=== PATIENT | female | born 1970 | race Caucasian/White ===

== ENCOUNTER → 2016-05-19 | Outpatient (CLI) | payer BC, OTHER ==
--- NOTE | 2016-05-20 13:50 | MM ---
Reason for exam: screening (asymptomatic). Last mammogram was performed 1 year and 3 months ago. History: Family history of breast cancer in paternal aunt at age 60. Took hormonal contraceptives for 7 years beginning at age 17. Took estrogen for 6 months beginning at age 39. Physical Findings: A clinical breast exam by your physician is recommended on an annual basis and results should be correlated with mammographic findings. MG Screening Mammo w CAD Bilateral CC and MLO view(s) were taken. Prior study comparison: February 12, 2015, bilateral MG screening mammo w CAD. December 12, 2013, bilateral MG diagnostic mammo w CAD LONI. The breast tissue is heterogeneously dense. This may lower the sensitivity of mammography. No significant changes when compared with prior studies. ASSESSMENT: Benign, BI-RAD 2 RECOMMENDATION: Routine screening mammogram of both breasts in 1 year.
== END | disposition home or self-care (01) ==
LOC: RADMAMWWP 07:30
PROVIDERS: ATTEND Obstetrics & Gynecology
DX: Z12.31 Encounter for screening mammogram for malignant neoplasm of breast (principal)

== ENCOUNTER 2016-05-28 22:03 | Emergency (ER) | payer BC, OTHER ==
[2016-05-28 22:08] VITALS: RESP 18
--- NOTE | 2016-05-28 22:26 | ED ---
General Adult HPI - General Chief complaint: Arrhythmia/Palpitations Stated complaint: chest pain/left arm tingling Time Seen by Provider: 05/28/16 22:24 Source: patient, RN notes reviewed, old records reviewed Mode of arrival: wheelchair Limitations: no limitations - History of Present Illness Initial comments: This is a 46-year-old female the ER for evaluation. This patient presents for evaluation palpitations patient feels palpitations left-sided of her chest, patient recently having workup for thyroid disease. As well as cause of palpitations. Patient denies any chest pain. No shortness of breath. Patient' s symptoms are going on for about a month no known cause. No change in medication diet, patient has lost weight over the last year on purpose with diet weight loss and exercise. Patient denies any fevers no cough congestion or nausea vomiting or diarrhea. No new medications, denies drugs or alcohol. - Related Data Home Medications Medication Instructions Recorded Confirmed LORazepam [Ativan] 0.5 mg PO BID 05/28/16 05/28/16 SUMAtriptan SUCCINATE [Imitrex] 100 mg PO DAILY PRN 05/28/16 05/28/16 Zolpidem [Ambien] 5 mg PO HS PRN 05/28/16 05/28/16 Allergies Allergy/AdvReac Type Severity Reaction Status Date / Time tetracycline [Tetracycline] Allergy Rash/Hives Verified 05/28/16 22:37 Review of Systems ROS Statement: Those systems with pertinent positive or pertinent negative responses have been documented in the HPI. ROS Other: All systems not noted in ROS Statement are negative. Past Medical History Past Medical History: Asthma Additional Past Medical History / Comment(s): migraines History of Any Multi-Drug Resistant Organisms: None Reported Past Surgical History: Orthopedic Surgery, Uterine Ablation Past Psychological History: Anxiety Smoking Status: Current some day smoker Past Alcohol Use History: Rare Past Drug Use History: None Reported General Exam Limitations: no limitations General appearance: alert, in no apparent distress, anxious Head exam: Present: atraumatic, normocephalic, normal inspection Eye exam: Present: normal appearance, PERRL, EOMI. Absent: scleral icterus, conjunctival injection, periorbital swelling ENT exam: Present: normal exam, mucous membranes moist Neck exam: Present: normal inspection. Absent: tenderness, meningismus, lymphadenopathy Respiratory exam: Present: normal lung sounds bilaterally. Absent: respiratory distress, wheezes, rales, rhonchi, stridor Cardiovascular Exam: Present: regular rate, normal rhythm, normal heart sounds. Absent: systolic murmur, diastolic murmur, rubs, gallop, clicks GI/Abdominal exam: Present: soft, normal bowel sounds. Absent: distended, tenderness, guarding, rebound, rigid Extremities exam: Present: normal inspection, full ROM, normal capillary refill. Absent: tenderness, pedal edema, joint swelling, calf tenderness Back exam: Present: normal inspection Neurological exam: Present: alert, oriented X3, CN II-XII intact Psychiatric exam: Present: normal affect, normal mood Skin exam: Present: warm, dry, intact, normal color. Absent: rash Course Vital Signs 05/28/16 05/28/16 22:05 22:26 Temperature 97.7 F Pulse Rate 82 Pulse Rate [ 78 [employer] ] Respiratory 18 Rate Blood Pressure 106/72 O2 Sat by Pulse 100 Oximetry - Reevaluation(s) Reevaluation #1: 05/28/16 23:21 Patient does appear to have PVCs on EKG as well as rhythm strip Reevaluation #2: 05/28/16 23:21 Patient does admit to having history of anxiety EKG Findings - EKG Comments: EKG Findings:: EKG shows sinus rhythm rate of 84, IN 138, QRS 74, QTC 472 Medical Decision Making - Medical Decision Making 46 female ER for evaluation regarding palpitations, Lasegue's are normal, thyroid studies are normal. Patient does suffer from anxiety, will continue outpatient testing with echo and Holter monitor in the future - Lab Data Result diagrams: 05/28/16 22:20 Lab Results 05/28/16 05/28/16 Range/Units 22:20 22:20 WBC 10.8 H (3.8-10.6) k/uL RBC 4.44 (3.80-5.40) m/uL Hgb 13.9 (11.4-16.0) gm/dL Hct 41.5 (34.0-46.0) % MCV 93.6 (80.0-100.0) fL MCH 31.4 (25.0-35.0) pg MCHC 33.5 (31.0-37.0) g/dL RDW 12.8 (11.5-15.5) % Plt Count 316 (150-450) k/uL Neutrophils % 60 % Lymphocytes % 25 % Monocytes % 7 % Eosinophils % 5 % Basophils % 1 % Neutrophils # 6.5 (1.3-7.7) k/uL Lymphocytes # 2.7 (1.0-4.8) k/uL Monocytes # 0.7 (0-1.0) k/uL Eosinophils # 0.6 (0-0.7) k/uL Basophils # 0.1 (0-0.2) k/uL PT 10.1 (9.0-12.0) sec INR 1.0 (<1.1) APTT 23.7 (22.0-30.0) sec Disposition Clinical Impression: Palpitations, Premature ventricular contraction Disposition: HOME SELF-CARE Condition: Good Instructions: Palpitations (ED), Premature Ventricular Contractions (ED) Referrals: Vero Moran MD [Primary Care Provider] - 1-2 days
[2016-05-28] MEDS ORDERED: SODIUM CHLORIDE 0.9% 1,000 ML IV STA (22:52)
[2016-05-28] MEDS ORDERED: LORazepam 2 MG/ML SYRINGE IV STA (22:53)
[2016-05-28 23:09] LABS: Basophils # (A) 0.1 k/uL (0-0.2); Basophils % (A) 1 %; CH 31.3; CHCM 33.6; Eosinophils # (A) 0.6 k/uL (0-0.7); Eosinophils % (A) 5 %; HCT 41.5 % (34.0-46.0); HDW 2.29; HGB 13.9 gm/dL (11.4-16.0); Luc # (Auto) 0.33; Luc % (Auto) 3; Lymphocytes # (A) 2.7 k/uL (1.0-4.8); Lymphocytes % (A) 25 %; MCH 31.4 pg (25.0-35.0); MCHC 33.5 g/dL (31.0-37.0); MCV 93.6 fL (80.0-100.0); Mean Platelet Volume 7.8; Monocytes # (A) 0.7 k/uL (0-1.0); Monocytes % (A) 7 %; Neutrophils # (A) 6.5 k/uL (1.3-7.7); Neutrophils % (A) 60 %; RBC 4.44 m/uL (3.80-5.40); RDW 12.8 % (11.5-15.5); WBC 10.8 k/uL (3.8-10.6); WBC (Perox) 11.04
[2016-05-28 23:16] LABS: Partial Thromboplastin Time 23.7 sec (22.0-30.0)
[2016-05-28 23:18] LABS: Prothrombin Time 10.1 sec (9.0-12.0)
[2016-05-28 23:20] LABS: ALT 32 U/L (9-52); AST 21 U/L (14-36); Alkaline Phosphatase 58 U/L (38-126); Anion Gap 9 mmol/L; Blood Urea Nitrogen 12 mg/dL (7-17); Carbon Dioxide 29 mmol/L (22-30); Chloride 105 mmol/L (98-107); Glucose 74 mg/dL (74-99); Magnesium 2.1 mg/dL (1.6-2.3); Non-African American GFR(MDRD) >60 (>60 ml/min/1.73 sqM); Phosphorous 4.5 mg/dL (2.5-4.5); Potassium 4.3 mmol/L (3.5-5.1); Sodium 143 mmol/L (137-145); Total Bilirubin 0.2 mg/dL (0.2-1.3); Total Protein 6.7 g/dL (6.3-8.2)
[2016-05-28 23:29] LABS: Creatine Kinase 35 U/L (30-135)
[2016-05-28 23:42] LABS: Creatine Kinase MB 0.4 ng/mL (0.0-2.4); Troponin I <0.012 ng/mL (0.000-0.034)
[2016-05-29 00:09] VITALS: BP 126/68; PULSE 85; TEMP 98
== END 2016-05-29 00:09 | disposition home or self-care (01) ==
LOC: EC 22:03
DX: I49.3 Ventricular premature depolarization (principal); F41.9 Anxiety disorder, unspecified; F17.200 Nicotine dependence, unspecified, uncomplicated; Z79.899 Other long term (current) drug therapy; Z88.1 Allergy status to other antibiotic agents; Z86.69 Personal history of other diseases of the nervous system and sense organs
CPT/HCPCS: 36415; 93005; 80053; 84443; 82550; 82553; 83735; 84100; 84484; 85025; 85610; 85730; 99285; 96374; 96361; J2060

== ENCOUNTER → 2016-06-05 | Outpatient (CLI) | payer BC, OTHER ==
--- NOTE | 2016-06-05 09:03 | US ---
EXAMINATION TYPE: US thyroid st tissue head/neck DATE OF EXAM: 06/05/2016 8:46 AM COMPARISON: NONE CLINICAL HISTORY: R22.0 Swelling/Mass/Lump. Swelling right thyroid GLAND SIZE: Right Lobe: 6.2 x 2.1 x 2.5 cm Overall Parenchyma: heterogenous Left Lobe: 6.0 x 1.9 x 1.9 cm Overall Parenchyma: heterogeneous Isthmus Thickness: 0.2 cm NODULES RIGHT: # of nodules measured on right: 2 1. 0.9 X 0.5 x 0.9 cm solid nodule at the upper pole with well-defined margins; . This nodule is w ider than tall and shows intranodular vascularity. Prior size: no prior 2. 0.7 X 0.7 x 0.7 cm solid nodule at the lower pole with irregular margins; . This nodule is talle r than wide and shows intranodular vascularity. Prior size: no prior LEFT: # of nodules measured on left: 3 1. 1.4 X 1.0 x 1.1 cm mixed nodule at the upper pole with well-defined margins; . This nodule is w ider than tall and shows intranodular vascularity. Prior size: no prior 2. 0.8 X 0.5 x 0.6 cm mixed nodule at the lower pole with well-defined margins; . This nodule is wi taz than tall and shows intranodular vascularity. Prior size: no prior 3. 0.8 X 0.5 x 0.7 cm mixed nodule at the mid pole with well-defined margins; . This nodule is wide r than tall and shows intranodular vascularity. Prior size: no prior ISTHMUS: # of nodules measured in the isthmus: 0 Bilateral neck scanned, no evidence of lymphadenopathy. Enlarged thyroid gland. Multiple nodules note d bilaterally, largest 2 measured on the right and largest 3 measured on the left. IMPRESSION: 1. Thyromegaly. 2. Multinodular goiter. Consideration might BE given to biopsying the lesions greater than 1 cm.
== END | disposition home or self-care (01) ==
LOC: RADUSWWP 08:28
PROVIDERS: ATTEND Internal Medicine
DX: E04.2 Nontoxic multinodular goiter (principal)
CPT/HCPCS: 76536

== ENCOUNTER → 2016-06-09 | Outpatient (CLI) | payer BC, OTHER | END | disposition home or self-care (01) | LOC: RADECHMAIN 12:17 | PROVIDERS: ATTEND Internal Medicine | DX: Z53.9 Procedure and treatment not carried out, unspecified reason (principal) ==

== ENCOUNTER → 2016-06-23 | Outpatient (CLI) | payer BC, OTHER ==
--- NOTE | 2016-06-24 15:07 | NM ---
EXAMINATION TYPE: NM thyroid image w uptake DATE OF EXAM: 06/24/2016 11:22 AM COMPARISON: NONE HISTORY: Nontoxic multinodular goiter TECHNIQUE: After the intravenous administration of 11 mCi Tc 99m Sodium Pertechnetate, thyroid imagin g is performed 5 minutes post injection. Thyroid iodine uptake is calculated after the oral administr ation of 20 uCi I-131 capsule. FINDINGS: There is normal distribution of activity throughout the gland. The 4 hour iodine uptake is calculated at 8.5% (normal range 8-14%). The 24-hour iodine uptake is calculated at 20.6% (normal ra nge 15-35%). No suspicious photopenic defects are focal hot nodules are evident. IMPRESSION: 1. Normal thyroid scan and uptake.
== END | disposition home or self-care (01) ==
LOC: RADNMMAIN 10:14
PROVIDERS: ATTEND Internal Medicine Endocrinology, Diabetes & Metabolism
DX: E04.2 Nontoxic multinodular goiter (principal); E05.90 Thyrotoxicosis, unspecified without thyrotoxic crisis or storm
CPT/HCPCS: 84439; 84445; 82533; 84443; 84480; 78014; A9528; A9512

== ENCOUNTER → 2016-06-23 | Outpatient (CLI) | payer BC, OTHER | END | disposition home or self-care (01) | LOC: RADECHMAIN 10:30 | PROVIDERS: ATTEND Internal Medicine | DX: I49.3 Ventricular premature depolarization (principal) | CPT/HCPCS: 93225; 93226 ==

== ENCOUNTER → 2016-10-28 | Outpatient (CLI) | payer BC, OTHER | END | disposition home or self-care (01) | LOC: LABWHC1 14:11 | PROVIDERS: ATTEND Internal Medicine Endocrinology, Diabetes & Metabolism | DX: E04.2 Nontoxic multinodular goiter (principal) | CPT/HCPCS: 36415; 84439; 84443 ==

== ENCOUNTER → 2016-11-12 | Outpatient (CLI) | payer BC, OTHER ==
[2016-11-12 18:51] LABS: Basophils # (A) 0.1 k/uL (0-0.2); Basophils % (A) 1 %; CH 31.8; Eosinophils # (A) 1.2 k/uL (0-0.7); Eosinophils % (A) 11 %; HDW 2.32; HGB 13.7 gm/dL (11.4-16.0); Luc # (Auto) 0.19; Luc % (Auto) 2; Lymphocytes # (A) 2.2 k/uL (1.0-4.8); Lymphocytes % (A) 21 %; MCH 30.6 pg (25.0-35.0); MCHC 32.6 g/dL (31.0-37.0); MCV 93.8 fL (80.0-100.0); Mean Platelet Volume 7.6; Monocytes # (A) 0.5 k/uL (0-1.0); Monocytes % (A) 4 %; Neutrophils # (A) 6.3 k/uL (1.3-7.7); Neutrophils % (A) 61 %; RBC 4.48 m/uL (3.80-5.40); RDW 13.3 % (11.5-15.5); WBC 10.4 k/uL (3.8-10.6); WBC (Perox) 10.32
[2016-11-12 19:17] LABS: Anion Gap 10 mmol/L; Blood Urea Nitrogen 10 mg/dL (7-17); Carbon Dioxide 25 mmol/L (22-30); Chloride 104 mmol/L (98-107); Glucose 71 mg/dL (74-99); Non-African American GFR(MDRD) >60 (>60 ml/min/1.73 sqM); Potassium 4.4 mmol/L (3.5-5.1); Sodium 139 mmol/L (137-145)
== END | disposition home or self-care (01) ==
LOC: LABPAT 17:33
PROVIDERS: ATTEND Obstetrics & Gynecology
DX: Z01.812 Encounter for preprocedural laboratory examination (principal); N83.292 Other ovarian cyst, left side; N83.291 Other ovarian cyst, right side
CPT/HCPCS: 80051; 82565; 82947; 84520; 85025; 87086

== ENCOUNTER 2016-11-18 06:00 | Inpatient (IN) | payer BC, OTHER ==
[2016-11-12 08:27] VITALS: BMI 26.6
--- NOTE | 2016-11-17 10:56 | HP ---
HISTORY AND PHYSICAL This is a 46-year-old, white female, 3, para 2-0-1-2 who presents with a history of right lower quadrant pain. This has been increasing in intensity and decreasing in interval. She has been using nonsteroidal medications over the counter as needed for pain. The patient had an ultrasound which reveals a complex left ovarian cyst, 4.7 x 2.8 x 5.1 cm, as well as a complex right ovarian cyst measuring up to 6.8 cm with septation and solid components. Uterine dimensions are the upper limits of normal without evidence of fibroids. The GURWINDER testing has been done, and this is returning as a low likelihood for malignancy. We will therefore at this time proceed with exploratory laparotomy, pelvic washings, right salpingo-oophorectomy, possible ALETA BSO pending our findings. Our plan would be to remove the cyst of the left ovary with ovarian reconstruction. The procedure has been discussed with the patient and her extensively and they understand and agree with our plan. REVIEW OF SYSTEMS: Review of systems is otherwise negative. PAST MEDICAL HISTORY: Significant for asthma as well as urinary incontinence. PAST SURGICAL HISTORY: Endometrial biopsy with no significant diagnostic alterations, hysteroscopy and NovaSure endometrial ablation in the past, voluntary termination of in 1991, arthroscopic surgery of the left knee in 2013. CURRENT MEDICATIONS: 1. Ambien q.h.s. p.r.n. insomnia. 2. Imitrex p.r.n. 3. Lexapro 10 mg daily. 4. Methimazole 5 mg tablets 1/2 tab by oral route once daily. 5. Metoprolol 25 mg, 1/2 tablet once daily. ALLERGIES: Allergies include TETRACYCLINE to which reports some sensitivity and SEASONAL ALLERGIES as well. FAMILY HISTORY: Significant for hypertension, testicular cancer, colon cancer, bronchial asthma, breast cancer, and multiple allergies. Reproductive history is significant for 2 spontaneous vaginal deliveries, both healthy female infants, as well as a voluntary termination of in 1991. SOCIAL HISTORY: Patient consumes social alcohol. She is . She has never been a tobacco smoker and denies drug use. PHYSICAL EXAMINATION: On exam, this is a pleasant white female. She is 5 feet 4 75 inches, 164 pounds, BMI 27.5, blood pressure 124/80. The constitutional exam, patient is well nourished, well developed, alert, and oriented. The breasts are symmetric to inspection with no skin dimpling, nipple discharge, axillary adenopathy or discernible lesions or masses. The neck is soft and supple with no thyromegaly or cervical lymphadenopathy. Good range of motion. Chest is clear in all menard to auscultation anteriorly and posteriorly. Cardiac exam reveals regular rate and rhythm with no murmurs, clicks, or rubs. Abdomen is soft, nontender, no organosplenomegaly. There is no CVA tenderness. Extremities reveal no edema, good range of motion, good peripheral pulses. On pelvic exam, the cervix is multiparous, smooth and nontender. The right ovary is clinically enlarged and tender to palpation. The left ovary is within normal limits to palpation. The uterus is upper size of normal, slightly bulky and irregular, slightly tender to palpation. Rectal exam reveals good sphincter tone, FIT negative stool. IMPRESSION: Complex 6.8 cm right ovarian cyst, negative GURWINDER testing, smaller left ovarian cyst, bulky irregular uterus. PLAN: We will proceed with diagnostic laparotomy, pelvic washings, right salpingo- oophorectomy, potential left ovarian cystectomy with reconstruction of the left ovary, possible ALETA BSO pending findings at surgery. The risks, benefits and alternatives of this plan have been reviewed including but not being exclusive of bleeding, infection, perforation or damage to bowel, bladder, ureters, or indeed any pelvic or abdominal organs. The risk of anesthesia including aspiration, nerve damage, or even have also been discussed. All questions are answered. Second opinion is offered and declined. MMODL / IJN: [id number] /
[~2016-11-18 06:00] MED LIST: DEXAMETHASONE SOD PHOSPHATE 10 MG/ML 1 ML VIAL IV ONE; HYDROmorphone 1 MG/ML 1 ML SYRINGE IVP PRN; MIDAZOLAM 2 MG/2 ML VIAL IV PRN; ONDANSETRON 4 MG/2 ML VIAL IVP ONE; SCOPOLAMINE 1.5MG/72HR PATCH TRANSDERM ONE; ceFAZolin 2 GM in SODIUM CHLORIDE 0.9% 100 ML IVPB ONE
[2016-11-18] MEDS: LACTATED RINGERS 1,000 ML IV SCH ×3 (06:33→23:35)
[2016-11-18] MEDS ORDERED: LIDOCAINE 1% 20 ML VIAL (10MG/ML) FOR IV START INTRADERMA ONE (06:34)
[2016-11-18] MEDS ORDERED: fentaNYL (PF) 50 MCG/ML 2 ML AMP IVP ONE ×2 (07:04→07:20)
[2016-11-18] MEDS ORDERED: MIDAZOLAM 2 MG/2 ML VIAL ONE (07:26)
[2016-11-18] MEDS ORDERED: LIDOCAINE 1% INJ 10MG/ML (20 ML MDV) ONE (07:26)
[2016-11-18] MEDS ORDERED: fentaNYL (PF) 50 MCG/ML 2 ML AMP ONE (07:26)
[2016-11-18] MEDS ORDERED: NEOSTIGMINE 1 MG/ML 10 ML VIAL ONE (07:26)
[2016-11-18] MEDS ORDERED: MORPHINE SULFATE (PF) 0.3 MG/0.3 ML SYR ONE (07:26)
[2016-11-18] MEDS ORDERED: GLYCOPYRROLATE 0.2 MG/ML 2 ML VIAL ONE (07:26)
[2016-11-18] MEDS ORDERED: ePHEDrine SULFATE/0.9% NACL/PF 50 MG/5 ML SYRINGE IV ONE (07:26)
[2016-11-18] MEDS ORDERED: ROCURONIUM BROMIDE 10 MG/ML 10 ML VIAL IV ONE (07:26)
[2016-11-18] MEDS ORDERED: PROPOFOL 10 MG/ML 20 ML VIAL IV ONE (07:26)
[2016-11-18] MEDS ORDERED: diphenhydrAMINE 50 MG/ML 1 ML VIAL IVP PRN ×2 (07:49→08:35)
[2016-11-18] MEDS ORDERED: NALOXONE 0.4 MG/ML 1 ML VIAL IV PRN (07:49)
[2016-11-18] MEDS ORDERED: ONDANSETRON 4 MG/2 ML VIAL IVP PRN (07:49)
[2016-11-18] MEDS ORDERED: NALBUPHINE 10 MG/ML AMPUL IV PRN (07:49)
[2016-11-18] MEDS ORDERED: KETOROLAC 30 MG/ML 1 ML VIAL IVP PRN (07:49)
[2016-11-18] MEDS ORDERED: CELLULOSE,OXIDIZED 1 EACH EACH MISCELLANE ONE (08:00)
[2016-11-18] MEDS ORDERED: GELATIN SPONGE,ABSORB (SMALL) 1 EACH SPONGE TOPICAL ONE ×2 (08:14)
[2016-11-18] MEDS ORDERED: LACTATED RINGERS 1,000 ML IV ONE (08:20)
[2016-11-18] MEDS ORDERED: IBUPROFEN 600 MG TAB PO PRN (08:35)
[2016-11-18] MEDS ORDERED: METOCLOPRAMIDE 5 MG/ML 2 ML VIAL IVP PRN (08:35)
[2016-11-18] MEDS ORDERED: ZOLPIDEM 5 MG TAB PO PRN (08:35)
[2016-11-18] MEDS ORDERED: Acetaminophen-Codeine 300-30mg TAB PO PRN (08:35)
[2016-11-18] MEDS ORDERED: SIMETHICONE 80 MG CHEWABLE PO PRN (08:35)
--- NOTE | 2016-11-18 08:35 | P.OP ---
Date of Procedure: 11/18/16 Preoperative Diagnosis: Complex 7 cm right adnexal mass, smaller septated left adnexal mass, fibroid uterus, right lower quadrant pain Postoperative Diagnosis: Pelvic endometriosis Procedure(s) Performed: Exploratory laparotomy, pelvic washings, right salpingo-oophorectomy, left ovarian wedge resection of endometrioma with reconstruction, adhesiolysis Implants: Anesthesia: GETA Surgeon: Keara Rodriguez Chart Collector #1: Shahram Moore Estimated Blood Loss (ml): 100 IV fluids (ml): 900 Urine output (ml): 25 Pathology: other (Right ovary and tube, wedge resection left ovary.) Condition: stable Disposition: PACU Indications for Procedure: Operative Findings: Description of Procedure: Patient is brought to the operating suite where a general anesthetic is administered without difficulty per the anesthesia staff. She's placed in the dorsal supine position. The cervix, perineal body abdomen are all prepped and draped in the usual sterile fashion. Antibiotics are given. The appropriate timeout is performed to assure proper patient and procedural identification. A low transverse skin incision is made in this is carried down through the subcutaneous tissue to the fascia. Fascia is scored, isolated and extended bilaterally with curved Dixon scissors. Peritoneum is next identified and incised. There is no bowel or bladder involvement. Gentle exploration of the abdomen is negative for upper abdomen, positive for large right pelvic mass and enlarged left ovary. Pelvic washings are obtained and set aside. The O'Jered- O'Johnson retractor is placed into the abdomen and the abdomen is gently packed with sterile sponges. The right adnexa is gently dissected with blunt and sharp dissection from the posterior cul-de-sac and right pelvic sidewall. When it is properly mobilized, it is clamped across the base with Barby clamps and the right tube and ovary along with large complex endometrioma are removed and sent to pathology for evaluation. At this time a Wendover clamp is used and the left adnexa is brought into the surgical field. 2 contains an endometrioma involving the posterior one third of the ovary. Decision is made to proceed with a wedge resection of the left ovary. A portion of the cortex and the endometrioma are sent to pathology for evaluation. The left ovary is closed with 0 Vicryl suture. The edges are cauterized to remove any remaining endometriosis. The ovary is then wrapped with Interceed. The pelvis was generously irrigated. There is a small amount of oozing noted in the posterior cul-de-sac behind the uterus with no obvious bleeding. For this reason pressure is placed on this region, and then Gelfoam is placed as well to aid in hemostasis. The pelvis now appears clean and dry. The left ovary is placed back into the pelvis with the Interceed wrapping. Hemostasis was very good. Peritoneum was allowed to close by secondary intention. Fascia is closed in a running stitch of 0 Vicryl with over ligation in the midline. Subcutaneous tissue was also irrigated, noted to be clean and dry. It is reapproximated with 3-0 Vicryl in a running fashion. 4-0 undyed Vicryl issues for final skin closure. All sponge needle and enhancement counts are correct. Coy is noted to be draining clear urine. Steri-Strips and Mastisol are applied to the wound. Patient is brought back to the recovery room in stable condition with vital signs including pulse of 67, blood pressure 109/68.
[2016-11-18] MEDS ORDERED: HYDROmorphone 1 MG/ML 1 ML SYRINGE IVP ONE (09:01)
[2016-11-18] MEDS: KETOROLAC 30 MG/ML 1 ML VIAL IVP PRN ×2 (15:07→20:49)
[2016-11-18] MEDS: SENNOSIDES-DOCUSATE SODIUM 1 EACH TAB PO SCH ×2 (16:06→20:48)
[2016-11-18] MEDS ORDERED: SUMAtriptan SUCCINATE 50 MG TAB PO PRN (16:15)
[2016-11-18] MEDS ORDERED: LORazepam 0.5 MG TAB PO SCH (21:00)
[2016-11-19 06:45] LABS: Basophils % (A) 0 %; CH 31.3; CHCM 33.5; Eosinophils # (A) 0.2 k/uL (0-0.7); Eosinophils % (A) 2 %; HCT 34.3 % (34.0-46.0); HGB 11.3 gm/dL (11.4-16.0); Luc % (Auto) 1; Lymphocytes # (A) 1.9 k/uL (1.0-4.8); Lymphocytes % (A) 17 %; MCH 30.8 pg (25.0-35.0); MCHC 32.8 g/dL (31.0-37.0); MCV 93.9 fL (80.0-100.0); Mean Platelet Volume 8.1; Monocytes # (A) 0.6 k/uL (0-1.0); Monocytes % (A) 6 %; Neutrophils # (A) 8.4 k/uL (1.3-7.7); Neutrophils % (A) 75 %; RBC 3.66 m/uL (3.80-5.40); RDW 13.6 % (11.5-15.5); WBC 11.2 k/uL (3.8-10.6); WBC (Perox) 11.25
[2016-11-19] MEDS: KETOROLAC 30 MG/ML 1 ML VIAL IVP PRN (07:25)
--- NOTE | 2016-11-19 07:50 | P.PN ---
Progress Note - Text Date: 11/19/2016 Time: 709 The patient is status post, exploratory laparotomy Vital signs stable VAS:[0-10] Patient has no complaints of pain. The patient incurred some minimal itching yesterday, this itching is now subsiding. Pain meds to be managed by service.
[2016-11-19] MEDS ORDERED: METHIMAZOLE 5 MG TAB PO SCH (08:00)
--- NOTE | 2016-11-19 08:04 | P.DS ---
Providers Date of admission: 11/18/16 06:00 Expected date of discharge: 11/19/16 Attending physician: Keara Rodriguez Primary care physician: Stated None Hospital Course: This is a 46-year-old white female who presented to my care with pelvic pain, and bilateral complex ovarian cysts. Workup include GURWINDER testing, which came back low suspicion for malignancy. We elected therefore to proceed with exploratory laparotomy here. Please see my admitting history and physical for details. Patient was admitted and underwent an exploratory laparotomy, pelvic washings, right salpingo-oophorectomy, excision of left ovarian endometrioma with wedge resection and reconstruction of the ovary, and adhesiolysed this. Pathology was consistent with endometriomas. She did well intraoperatively with an estimated blood loss of 100 mL's. Interceed was used to wrap the left ovary after reconstruction. Please see my dictated operative note for details. This morning the patient is doing well. She is voiding, ambulating, passing flatus without difficulty. Vital signs are stable and she is afebrile. She is passing flatus. Coy catheter has been removed. Incision is clean and dry, with Steri-Strips applied. CBC this morning reveals stable hemoglobin of 11.3. I discussed with the patient the risks benefits and thought process of Depo- Lupron, to chemically remove any potentially stray endometriotic cells. After reviewing the risks and benefits, the patient has consented for treatment. She will receive Depo-Lupron today, 11.5 mg IM 1. Her diet is being advanced, she will shower. If she feels well, patient will be discharged home later this afternoon. I feel she is in very good condition for discharge home. I've given her prescription for Tylenol No. 3 to be used every 4 hours as needed for pain. She will alternate this with ibuprofen products. I've asked her to call me with any redness or drainage of the incision, with any pain not alleviated by the above regime, with any difficulties voiding, with any lightheadedness or dizziness, or indeed with any concerns. She will follow up with the office in 2 weeks. No driving, no intercourse, no heavy lifting, no vacuuming. Patient Condition at Discharge: Good Plan - Discharge Summary New Discharge Prescriptions: No Action Zolpidem [Ambien] 5 mg PO HS LORazepam [Ativan] 0.5 mg PO HS SUMAtriptan SUCCINATE [Imitrex] 100 mg PO DAILY PRN PRN Reason: Migraine Headache Metoprolol Tartrate [Lopressor] 12.5 mg PO QAM Methimazole [Tapazole] 2.5 mg PO Q48H Methimazole [Tapazole] 5 mg PO Q48H traMADol HCL [Ultram] 50 mg PO Q4HR PRN PRN Reason: Pain Discharge Medication List LORazepam [Ativan] 0.5 mg PO HS 05/28/16 [History] SUMAtriptan SUCCINATE [Imitrex] 100 mg PO DAILY PRN 05/28/16 [History] Zolpidem [Ambien] 5 mg PO HS 05/28/16 [History] Methimazole [Tapazole] 2.5 mg PO Q48H 11/12/16 [History] Methimazole [Tapazole] 5 mg PO Q48H 11/12/16 [History] Metoprolol Tartrate [Lopressor] 12.5 mg PO QAM 11/12/16 [History] traMADol HCL [Ultram] 50 mg PO Q4HR PRN 11/12/16 [History] Follow up Appointment(s)/Referral(s): Keara Rodriguez MD [STAFF PHYSICIAN] - 2 Weeks Discharge Disposition: HOME SELF-CARE
[2016-11-19] MEDS ORDERED: ACETAMINOPHEN TAB 325 MG TAB PO PRN (08:36)
[2016-11-19] MEDS ORDERED: LEUPROLIDE ACET 11.25MG SYRGKIT IM ONE (09:00)
[2016-11-19] MEDS ORDERED: METOPROLOL TARTRATE 12.5 MG TAB PO SCH (09:00)
[2016-11-19] MEDS: SENNOSIDES-DOCUSATE SODIUM 1 EACH TAB PO SCH (09:31)
[2016-11-19 15:00] VITALS: BP 116/69; PULSE 76; RESP 16; TEMP 97.6
== END 2016-11-19 15:00 | disposition home or self-care (01) | DRG 743 ==
LOC: 2ORWHC 06:00 → 6PED 08:55
PROVIDERS: ADMIT Obstetrics & Gynecology; ATTEND Obstetrics & Gynecology
PROC: 0UB50ZZ Excision of Right Fallopian Tube, Open Approach (ICD-10-PCS; 2016-11-18)
PROC: 0UT00ZZ Resection of Right Ovary, Open Approach (ICD-10-PCS; 2016-11-18)
PROC: 0UQ10ZZ Repair Left Ovary, Open Approach (ICD-10-PCS; 2016-11-18)
PROC: 0UB10ZZ Excision of Left Ovary, Open Approach (ICD-10-PCS; principal; 2016-11-18 07:30)
DX: N83.202 Unspecified ovarian cyst, left side (principal); D25.9 Leiomyoma of uterus, unspecified; N80.3 Endometriosis of pelvic peritoneum; N80.0 Endometriosis of uterus; N73.6 Female pelvic peritoneal adhesions (postinfective); N83.201 Unspecified ovarian cyst, right side; N80.1 Endometriosis of ovary; F41.9 Anxiety disorder, unspecified; G47.00 Insomnia, unspecified; G43.909 Migraine, unspecified, not intractable, without status migrainosus; R32 Unspecified urinary incontinence; Z80.0 Family history of malignant neoplasm of digestive organs; Z82.49 Family history of ischemic heart disease and other diseases of the circulatory system; Z79.899 Other long term (current) drug therapy; Z82.5 Family history of asthma and other chronic lower respiratory diseases; Z80.3 Family history of malignant neoplasm of breast; Z88.1 Allergy status to other antibiotic agents; Z79.1 Long term (current) use of non-steroidal anti-inflammatories (NSAID); Z80.43 Family history of malignant neoplasm of testis; Z87.09 Personal history of other diseases of the respiratory system
CPT/HCPCS: 81025; 85025; 86850; 86900; 86901; 88305; 88342

== ENCOUNTER → 2016-12-29 | Outpatient (CLI) | payer BC, OTHER | END | disposition home or self-care (01) | LOC: LABWHC1 08:53 | PROVIDERS: ATTEND Internal Medicine Endocrinology, Diabetes & Metabolism | DX: E05.90 Thyrotoxicosis, unspecified without thyrotoxic crisis or storm (principal) | CPT/HCPCS: 36415; 84439; 84443; 84480 ==

== ENCOUNTER → 2017-04-06 | Outpatient (CLI) | payer BC, OTHER ==
[2017-04-06 14:57] LABS: T4, Free (Free Thyroxine) 0.96 ng/dL (0.78-2.19)
== END | disposition home or self-care (01) ==
LOC: LABWHC1 13:55
PROVIDERS: ATTEND Internal Medicine Endocrinology, Diabetes & Metabolism
DX: E04.2 Nontoxic multinodular goiter (principal); E05.90 Thyrotoxicosis, unspecified without thyrotoxic crisis or storm
CPT/HCPCS: 36415; 84439; 84443; 84480

== ENCOUNTER → 2017-04-20 | Outpatient (CLI) | payer BC, OTHER ==
--- NOTE | 2017-04-21 06:50 | US ---
EXAMINATION TYPE: US thyroid st tissue head/neck DATE OF EXAM: 04/20/2017 COMPARISON: Thyroid ultrasound June 05, 2016 CLINICAL HISTORY: E04.2 Non toxic multinodular goiter. Follow up thyroid nodules GLAND SIZE: Right Lobe: 6.4 x 1.9 x 2.4 cm Overall Parenchyma: heterogenous Left Lobe: 6.1 x 1.7 x 2.3 cm Overall Parenchyma: heterogeneous Isthmus Thickness: 0.3 cm NODULES RIGHT: # of nodules measured on right: 1. 1.0 X 0.5 x 0.9 cm solid nodule at the upper pole with well-defined margins; . This nodule is w ider than tall and shows intranodular vascularity. Prior size: 0.9 x 0.5 x 0.9 cm 2. 0.8 X 0.4 x 0.6 cm solid nodule at the lower pole with poorly defined margins; . This nodule is wider than tall and shows intranodular vascularity. Prior size: 0.7 x 0.7 x 0.7 cm LEFT: # of nodules measured on left: 3 1. 1.4 X 1.0 x 1.2 cm mixed nodule at the upper pole with well-defined margins; . This nodule is w ider than tall and shows intranodular vascularity. Prior size: 1.4 x 1.0 x 1.1 cm 2. 0.9 X 0.6 x 0.9 cm mixed nodule at the lower pole with well-defined margins; . This nodule is wi taz than tall and shows intranodular vascularity. Prior size: 0.8 x 0.5 x 0.6 cm 3. 0.9 X 0.5 x 0.8 cm mixed nodule at the mid pole with well-defined margins; . This nodule is wide r than tall and shows intranodular vascularity. Prior size: 0.8 x 0.5 x 0.7 cm ISTHMUS: # of nodules measured in the isthmus: Bilateral neck scanned, normal appearing lymph nodes left neck Redemonstration of heterogeneous enlarged thyroid with multiple nodules. IMPRESSION: Overall stable findings, heterogeneous enlarged multinodular goiter again seen. Largest nodule upper pole level left thyroid is stable. No new greater than 1 cm solid or cystic nodules are seen.
== END | disposition home or self-care (01) ==
LOC: RADUSWWP 16:48
PROVIDERS: ATTEND Internal Medicine Endocrinology, Diabetes & Metabolism
DX: E04.2 Nontoxic multinodular goiter (principal)
CPT/HCPCS: 76536

== ENCOUNTER → 2017-05-13 | Outpatient (CLI) | payer BC, OTHER ==
[2017-05-13 17:01] LABS: T4, Free (Free Thyroxine) 1.06 ng/dL (0.78-2.19)
== END | disposition home or self-care (01) ==
LOC: LABWHC1 16:09
PROVIDERS: ATTEND Internal Medicine Endocrinology, Diabetes & Metabolism
DX: E05.90 Thyrotoxicosis, unspecified without thyrotoxic crisis or storm (principal)
CPT/HCPCS: 36415; 84439; 84443; 84480

== ENCOUNTER → 2017-05-25 | Outpatient (CLI) | payer BC, OTHER ==
--- NOTE | 2017-05-26 14:03 | MM ---
Reason for exam: screening (asymptomatic). Last mammogram was performed 1 year ago. History: Family history of breast cancer in paternal aunt at age 60. Took hormonal contraceptives for 7 years beginning at age 17. Took estrogen for 6 months beginning at age 39. Physical Findings: A clinical breast exam by your physician is recommended on an annual basis and results should be correlated with mammographic findings. MG Screening Mammo w CAD Bilateral CC and MLO view(s) were taken. Prior study comparison: May 19, 2016, bilateral MG screening mammo w CAD. February 12, 2015, bilateral MG screening mammo w CAD. The breast tissue is heterogeneously dense. This may lower the sensitivity of mammography. Developing asymmetry retroareolar right MLO view. Questionable subtle distortion CC view. ASSESSMENT: Incomplete: need additional imaging evaluation, BI-RAD 0 RECOMMENDATION: Special view mammogram of the right breast. If lesion persists on supplemental views, image directed ultrasound is recommended. [facility] will attempt to contact patient to return for supplemental views and ultrasound if indicated.
== END | disposition home or self-care (01) ==
LOC: RADMAMWWP 09:09
PROVIDERS: ATTEND Obstetrics & Gynecology
DX: Z12.31 Encounter for screening mammogram for malignant neoplasm of breast (principal); Z80.3 Family history of malignant neoplasm of breast
CPT/HCPCS: 77067

== ENCOUNTER → 2017-05-29 | Outpatient (CLI) | payer BC, OTHER ==
--- NOTE | 2017-05-29 13:28 | MM ---
Reason for exam: additional evaluation requested from abnormal screening. Last mammogram was performed less than 1 month ago. History: Patient is postmenopausal. Family history of breast cancer in paternal aunt at age 60. Took hormonal contraceptives for 7 years beginning at age 17. Took estrogen for 6 months beginning at age 39. Physical Findings: Nurse did not find any significant physical abnormalities on exam. MG 3D Work Up W/Cad RT Spot compression CC, spot compression MLO, and ML view(s) were taken of the right breast. Prior study comparison: May 25, 2017, bilateral MG screening mammo w CAD. May 19, 2016, bilateral MG screening mammo w CAD. The breast tissue is heterogeneously dense. This may lower the sensitivity of mammography. There is no discrete abnormality. No significant new findings when compared with previous films. These results were verbally communicated with the patient and result sheet given to the patient on 05/29/17. ASSESSMENT: Negative, BI-RAD 1 RECOMMENDATION: Return to routine screening mammogram schedule for both breasts.
== END | disposition home or self-care (01) ==
LOC: RADMAMWWP 12:34
PROVIDERS: ATTEND Obstetrics & Gynecology
DX: R92.8 Other abnormal and inconclusive findings on diagnostic imaging of breast (principal)
CPT/HCPCS: 77065; G0279

== ENCOUNTER → 2017-12-25 | Outpatient (CLI) | payer BC, OTHER ==
--- NOTE | 2017-12-25 13:12 | US ---
EXAMINATION TYPE: US thyroid st tissue head/neck DATE OF EXAM: 12/25/2017 COMPARISON: 04/20/2017 CLINICAL HISTORY: E04.2 Nontoxic multinodular goiter. Follow up thyroid nodules GLAND SIZE: Right Lobe: 5.3 x 1.8 x 2.7 cm Overall Parenchyma: heterogenous Left Lobe: 5.1 x 1.8 x 2.4 cm Overall Parenchyma: heterogeneous Isthmus Thickness: 0.3 cm NODULES RIGHT: # of nodules measured on right: 2 1. 1.0 X 0.5 x 0.8 cm solid nodule at the upper pole with well-defined margins; . This nodule is w ider than tall and shows intranodular vascularity. Prior size: 1.0 x 0.5 x 0.9 cm 2. 0.8 X 0.4 x 0.7 cm solid nodule at the lower pole with poorly defined margins; . This nodule is wider than tall and shows intranodular vascularity. Prior size: 0.8 x 0.4 x 0.6 cm LEFT: # of nodules measured on left: 3 1. 1.3 X 1.1 x 1.0 cm mixed nodule at the upper pole with well-defined margins; . This nodule is w ider than tall and shows intranodular vascularity. Prior size: 1.4 x 1.0 x 1.2 cm 2. 0.9 X 0.5 x 0.9 cm mixed nodule at the lower pole with well-defined margins; . This nodule is wi taz than tall and shows intranodular vascularity. Prior size: 0.9 x 0.6 x 0.9 cm 3. 1.0 X 0.6 x 0.9 cm mixed nodule at the mid pole with well-defined margins; . This nodule is wide r than tall and shows intranodular vascularity. Prior size: 0.9 x 0.5 x 0.8 cm ISTHMUS: # of nodules measured in the isthmus: 0 Bilateral neck scanned, no evidence of lymphadenopathy. Heterogeneous gland with multiple nodules noted IMPRESSION: Similar size of the multiple bilateral thyroid nodules with the largest measuring up to 1.3 cm on the left in an overall multinodular goiter.
[2017-12-25 13:32] LABS: T4, Free (Free Thyroxine) 1.05 ng/dL (0.78-2.19)
== END | disposition home or self-care (01) ==
LOC: RADUSWWP 12:13
PROVIDERS: ATTEND Internal Medicine Endocrinology, Diabetes & Metabolism
DX: E04.2 Nontoxic multinodular goiter (principal); E05.90 Thyrotoxicosis, unspecified without thyrotoxic crisis or storm
CPT/HCPCS: 36415; 76536; 84439; 84443; 84480

== ENCOUNTER → 2018-06-11 | Outpatient (CLI) | payer BC ==
--- NOTE | 2018-06-14 11:43 | MM ---
Reason for exam: screening (asymptomatic). Last mammogram was performed 1 year ago. History: Patient is postmenopausal. Family history of breast cancer in paternal aunt at age 60. Took hormonal contraceptives for 7 years beginning at age 17. Took estrogen for 6 months beginning at age 39. Physical Findings: A clinical breast exam by your physician is recommended on an annual basis and results should be correlated with mammographic findings. MG Screening Mammo w CAD Bilateral CC and MLO view(s) were taken. Prior study comparison: May 29, 2017, right breast MG 3d work up w/cad RT. May 25, 2017, bilateral MG screening mammo w CAD. The breast tissue is heterogeneously dense. This may lower the sensitivity of mammography. Stable benign calcifications. There is no discrete abnormality. No significant changes when compared with prior studies. ASSESSMENT: Benign, BI-RAD 2 RECOMMENDATION: Routine screening mammogram of both breasts in 1 year.
== END | disposition home or self-care (01) ==
LOC: RADMAMWWP 09:17
PROVIDERS: ATTEND Obstetrics & Gynecology
DX: Z12.31 Encounter for screening mammogram for malignant neoplasm of breast (principal)
CPT/HCPCS: 77067

== ENCOUNTER → 2018-06-28 | Outpatient (CLI) | payer BC ==
[2018-06-28 20:14] LABS: T4, Free (Free Thyroxine) 1.4 ng/dL (0.80-1.80)
== END ==
LOC: LABWHC1 14:08
PROVIDERS: ATTEND Internal Medicine Endocrinology, Diabetes & Metabolism
DX: E05.90 Thyrotoxicosis, unspecified without thyrotoxic crisis or storm (principal)
CPT/HCPCS: 36415; 84439; 84443; 84480

== ENCOUNTER → 2018-09-20 | Outpatient (CLI) | payer BC ==
[2018-09-20 15:39] LABS: HCT 40.8 % (34.0-46.0); HGB 13.3 gm/dL (11.4-16.0); MCH 29.4 pg (25.0-35.0); MCHC 32.7 g/dL (31.0-37.0); MCV 89.8 fL (80.0-100.0); Mean Platelet Volume 7.6; Platelet Count 344 k/uL (150-450); RBC 4.54 m/uL (3.80-5.40); RDW 13.1 % (11.5-15.5); WBC 10.1 k/uL (3.8-10.6)
[2018-09-20 15:45] LABS: INR 0.9 (<1.2); Partial Thromboplastin Time 24.1 sec (22.0-30.0); Prothrombin Time 9.9 sec (9.0-12.0)
[2018-09-20 17:20] LABS: ALT 22 U/L (9-52); AST 23 U/L (14-36); African American GFR (CKD) >90 (>60 ml/min/1.73 sqM); Albumin 4.2 g/dL (3.5-5.0); Alkaline Phosphatase 71 U/L (38-126); Anion Gap 11 mmol/L; Blood Urea Nitrogen 13 mg/dL (7-17); Calcium 9.1 mg/dL (8.4-10.2); Carbon Dioxide 24 mmol/L (22-30); Chloride 107 mmol/L (98-107); Cholesterol 162 mg/dL (<200); Glucose 97 mg/dL (74-99); HDL Cholesterol 55 mg/dL (40-60); LDL Cholesterol,Calculated 86 mg/dL (0-99); Phosphorus 3.6 mg/dL (2.5-4.5); Sodium 142 mmol/L (137-145); Total Bilirubin 0.3 mg/dL (0.2-1.3); Triglycerides 106 mg/dL (<150)
[2018-09-20 17:34] LABS: T4, Free (Free Thyroxine) 1.34 ng/dL (0.78-2.19)
--- NOTE | 2018-09-20 17:51 | US ---
EXAMINATION TYPE: US thyroid st tissue head/neck DATE OF EXAM: 09/20/2018 COMPARISON: CT CLINICAL HISTORY: E04.2 Nontoxic multinodular goiter. Patient stated hears a clicking sound from thy roid area with swallowing motion GLAND SIZE: Right Lobe: 6.1 x 2.5 x 1.6 cm Overall Parenchyma: homogenous Left Lobe: 6.5 x 2.3 x 1.8 cm Overall Parenchyma: homogeneous Isthmus Thickness: 0.3 cm NODULES RIGHT: # of nodules measured on right: 2 1. 0.9 X 0.7 x 0.5 cm hypoechoic mixed nodule at the upper pole with well-defined margins. This no dule is wider than tall and shows intranodular vascularity. Prior size: 1.0 x 0.5 x 0.8 cm 2. 0.6 X 0.7 x 0.6 cm hypoechoic mixed nodule at the lower pole with well-defined margins. This nod ule is wider than tall and shows no intranodular vascularity. Prior size: 0.8 x 0.4 x 0.7 cm LEFT: # of nodules measured on left: 3 1. 1.2 X 1.0 x 1.1 cm hypoechoic mixed nodule at the upper pole with well-defined margins. This no dule is taller than wide and shows no intranodular vascularity. Prior size: 1.3 x 1.1 x 1.0 cm 2. 1.1 X 0.9 x 0.7 cm hypoechoic mixed nodule at the lower pole with well-defined margins. This nod ule is wider than tall and shows no intranodular vascularity. Prior size: 0.9 x 0.5 x 0.9 cm 3. 1.1 X 1.1 x 0.6 cm hypoechoic mixed nodule at the mid medial pole with well-defined margins. Thi s nodule is wider than tall and shows no intranodular vascularity. Prior size: 1.0 x 0.6 x 0.9 cm ISTHMUS: # of nodules measured in the isthmus: 0 Bilateral neck scanned: no evidence of lymphadenopathy. IMPRESSION: Findings are essentially stable accounting for differences in technique. Multinodular goiter.
[2018-09-20 22:44] LABS: Hemoglobin A1C 5.4 % (4.0-6.0)
[2018-09-21 00:13] LABS: Parathyroid Hormone Intact 50.5 pg/mL (14.0-72.0)
[2018-09-21 01:36] LABS: Vitamin D 25 Hydroxy 31.7 ng/mL (30.0-100.0)
[2018-09-21 01:55] LABS: Iron Saturation 21.23 (12.00-45.00)
[2018-09-21 02:08] LABS: Folate, Serum 14.6 ng/mL
[2018-09-21 11:00] LABS: Zinc, Serum 71 ug/dL (60-130)
[2018-09-22 07:28] LABS: Vitamin A 53 ug/dL (38-106)
[2018-09-22 07:32] LABS: Vit B1(Thiamine) 78 ug/L (38-122)
== END | disposition home or self-care (01) ==
LOC: RADUSWWP 15:14
PROVIDERS: ATTEND Internal Medicine Endocrinology, Diabetes & Metabolism
DX: E04.2 Nontoxic multinodular goiter (principal); E21.1 Secondary hyperparathyroidism, not elsewhere classified; D50.8 Other iron deficiency anemias; K90.89 Other intestinal malabsorption; E55.9 Vitamin D deficiency, unspecified; N19 Unspecified kidney failure; K50.90 Crohn's disease, unspecified, without complications
CPT/HCPCS: 36415; 76536; 80053; 80061; 82306; 82525; 82607; 82728; 82746; 83036; 83540; 83550; 83735; 83970; 84100; 84134; 84255; 84425; 84439; 84443; 84590; 84630; 85027; 85610; 85730

== ENCOUNTER 2018-10-06 07:49 | Day surgery (SDC) | payer BC ==
[2018-10-01 09:38] VITALS: BMI 34.3
--- NOTE | 2018-10-06 07:24 | P.GSHP ---
History of Present Illness H&P Date: 10/06/18 CHIEF COMPLAINT: Colon screen HISTORY OF PRESENT ILLNESS: The patient is a 48-year-old female who presents for colon screen. Lower endoscopy was offered for further evaluation and management. PAST MEDICAL HISTORY: Please see list. PAST SURGICAL HISTORY: Please see list. MEDICATIONS: Please see list. ALLERGIES: Please see list. SOCIAL HISTORY: No illicit drug use FAMILY HISTORY: No reports of Crohn disease or ulcerative colitis. REVIEW OF ORGAN SYSTEMS: CONSTITUTIONAL: No reports of fevers or chills. PHYSICAL EXAM: VITAL SIGNS: Stable GENERAL: Well-developed pleasant in no acute distress. HEENT: No scleral icterus. Extraocular movements grossly intact. Moist buccal mucosa. NECK: Supple without lymphadenopathy. CHEST: Unlabored respirations. Equal bilateral excursions. CARDIOVASCULAR: Regular rate and rhythm. Distal 2+ pulses. ABDOMEN: Soft, nontender, nondistended. MUSCULOSKELETAL: No clubbing, cyanosis, or edema. ASSESSMENT: 1. Colon screen. PLAN: 1. Recommend proceeding with a lower endoscopy Past Medical History Past Medical History: Asthma, Thyroid Disorder Additional Past Medical History / Comment(s): migraines, goiter/over active thyroid, "occ extra heart beat", History of Any Multi-Drug Resistant Organisms: None Reported Past Surgical History: Orthopedic Surgery, Uterine Ablation Additional Past Surgical History / Comment(s): oral surgery, arthroscopic left knee, LAPAROTOMY, RIGHT OOPHORECTOMY, CYST REMOVED FROM LEFT OVARY, Past Anesthesia/Blood Transfusion Reactions: Previous Problems w/ Anesthesia Additional Past Anesthesia/Blood Transfusion Reaction / Comment(s): "high anxiety before a procedure", had "morphine block"-got real itchy and hot Smoking Status: Never smoker - Past Family History Father Family Medical History: Cancer Additional Family Medical History / Comment(s): colon, testicular, lung Medications and Allergies Home Medications Medication Instructions Recorded Confirmed Type SUMAtriptan SUCCINATE [Imitrex] 100 mg PO DIRECTED PRN 05/28/16 10/01/18 History Ibuprofen [Motrin] 800 mg PO Q8H PRN 09/02/17 10/01/18 History Albuterol Sulfate [Proventil Hfa] 1 puff INHALATION Q6HR PRN 10/01/18 10/01/18 History Metoprolol Tartrate 12.5 mg PO QAM 07/26/19 07/26/19 History Allergies Allergy/AdvReac Type Severity Reaction Status Date / Time morphine Allergy Itching/hot Verified 10/01/18 10:05 tetracycline [Tetracycline] Allergy Rash/Hives Verified 10/01/18 09:27
[~2018-10-06 07:49] MED LIST changes: -DEXAMETHASONE SOD PHOSPHATE 10 MG/ML 1 ML VIAL IV ONE; -HYDROmorphone 1 MG/ML 1 ML SYRINGE IVP PRN; +LACTATED RINGERS 1,000 ML IV SCH; +LIDOCAINE 1% 20 ML VIAL (10MG/ML) FOR IV START INTRADERMA PRN; -MIDAZOLAM 2 MG/2 ML VIAL IV PRN; -ONDANSETRON 4 MG/2 ML VIAL IVP ONE; -SCOPOLAMINE 1.5MG/72HR PATCH TRANSDERM ONE; -ceFAZolin 2 GM in SODIUM CHLORIDE 0.9% 100 ML IVPB ONE
[2018-10-06 08:10] VITALS: TEMP 97.4
[2018-10-06] MEDS ORDERED: PROPOFOL 10 MG/ML 20 ML VIAL IV ONE (08:55)
--- NOTE | 2018-10-06 09:17 | P.PCN ---
Date of Procedure: 10/06/18 Description of Procedure: PREOPERATIVE DIAGNOSIS: High-risk family history colon cancer, multiple first-degree relatives Colonoscopy screening POSTOPERATIVE DIAGNOSIS: High-risk family history colon cancer, multiple first-degree relatives Colonoscopy screening Sigmoid diverticulosis OPERATION: Colonoscopy to the ileocecal valve and appendiceal orifice. SURGEON: Keara Altman MD. ANESTHESIA: MAC. INDICATIONS: The patient is a 48-year-old female who presents with strong family history of multiple first-degree relatives with early colon cancer. With this history, she presents for initial screening. Benefits and risks were described and informed consent was obtained. DESCRIPTION OF PROCEDURE: The patient had undergone Suprep. She had been brought into the operating room and laid in the left lateral decubitus position. After adequate intravenous sedation, the rectum was examined with 2% lidocaine jelly. External hemorrhoids were encountered. The rectal tone was within normal limits. No lesions were palpated in the rectal vault. An Olympus colonoscope was advanced until the ileocecal valve and appendiceal orifice were clearly viewed. The prep was excellent with clear visualization of the mucosal folds. The scope was removed with visualization of each mucosal fold. Sigmoid diverticulosis was encountered. No colonic polyps were found. No evidence of focal colitis was found. Retroflexion of the scope demonstrated grade 1 internal hemorrhoids without active bleeding or inflammation. The colon was desufflated. The patient had tolerated the procedure well. Withdrawal time was over 6 minutes. FINDINGS: Aronchick preparation quality scale 1 (1-5) Internal hemorrhoids, grade 1 External prolapsed hemorrhoids, grade 2 No arteriovenous malformations. No adenomatous polyps. No focal colitis. Moderate sigmoid diverticulosis RECOMMENDATIONS: Lower endoscopy in 5 years, 2023 Plan - Discharge Summary Discharge Rx Participant: No New Discharge Prescriptions: No Action SUMAtriptan SUCCINATE [Imitrex] 100 mg PO DIRECTED PRN PRN Reason: Migraine Headache Ibuprofen [Motrin] 800 mg PO Q8H PRN PRN Reason: Pain Metoprolol Tartrate 12.5 mg PO QAM Albuterol Sulfate [Proventil Hfa] 1 puff INHALATION Q6HR PRN PRN Reason: sob Discharge Medication List SUMAtriptan SUCCINATE [Imitrex] 100 mg PO DIRECTED PRN 05/28/16 [History] Ibuprofen [Motrin] 800 mg PO Q8H PRN 09/02/17 [History] Albuterol Sulfate [Proventil Hfa] 1 puff INHALATION Q6HR PRN 10/01/18 [History] Metoprolol Tartrate 12.5 mg PO QAM 10/01/18 [History] Follow up Appointment(s)/Referral(s): Keara Altman MD [STAFF PHYSICIAN] - As Needed Patient Instructions/Handouts: Diverticulosis Diet (GEN), Diverticulosis (DC) Activity/Diet/Wound Care/Special Instructions: Repeat colonoscopy 5 years2023 Discharge Disposition: HOME SELF-CARE
[2018-10-06 09:30] VITALS: BP 112/73; PULSE 78; RESP 16
== END 2018-10-06 10:04 | disposition home or self-care (01) ==
LOC: ORWHC2ENDO 07:49
PROVIDERS: ATTEND Surgery Plastic and Reconstructive Surgery
DX: Z12.11 Encounter for screening for malignant neoplasm of colon (principal); K57.30 Diverticulosis of large intestine without perforation or abscess without bleeding; Z80.0 Family history of malignant neoplasm of digestive organs; G43.909 Migraine, unspecified, not intractable, without status migrainosus; Z79.1 Long term (current) use of non-steroidal anti-inflammatories (NSAID); Z79.899 Other long term (current) drug therapy; Z88.1 Allergy status to other antibiotic agents; Z88.5 Allergy status to narcotic agent; J45.909 Unspecified asthma, uncomplicated; I49.8 Other specified cardiac arrhythmias
CPT/HCPCS: 81025; J2704; G0105

== ENCOUNTER → 2019-01-18 | Outpatient (CLI) | payer BC, OTHER ==
[2019-01-19] LABS: T4, Free (Free Thyroxine) 1.1 ng/dL (0.80-1.80)
== END | disposition home or self-care (01) ==
LOC: LABWHC1 15:38
PROVIDERS: ATTEND Internal Medicine Endocrinology, Diabetes & Metabolism
DX: E05.90 Thyrotoxicosis, unspecified without thyrotoxic crisis or storm (principal)
CPT/HCPCS: 36415; 84439; 84443; 84480

== ENCOUNTER → 2019-03-23 | Outpatient (CLI) | payer BC, OTHER ==
[2019-03-23 18:52] LABS: T4, Free (Free Thyroxine) 1.3 ng/dL (0.80-1.80)
== END | disposition home or self-care (01) ==
LOC: LABWHC1 14:16
PROVIDERS: ATTEND Internal Medicine Endocrinology, Diabetes & Metabolism
DX: E05.90 Thyrotoxicosis, unspecified without thyrotoxic crisis or storm (principal)
CPT/HCPCS: 36415; 84439; 84443; 84480

== ENCOUNTER → 2019-09-12 | Outpatient (CLI) | payer BC, OTHER ==
[2019-09-12 15:55] LABS: T4, Free (Free Thyroxine) 1.1 ng/dL (0.80-1.80)
== END | disposition home or self-care (01) ==
LOC: LABWHC1 07:55
PROVIDERS: ATTEND Internal Medicine Endocrinology, Diabetes & Metabolism
DX: E04.2 Nontoxic multinodular goiter (principal)
CPT/HCPCS: 36415; 84439; 84443

== ENCOUNTER → 2019-09-21 | Outpatient (CLI) | payer BC, OTHER ==
--- NOTE | 2019-09-22 13:16 | MM ---
Reason for exam: screening (asymptomatic). Last mammogram was performed 1 year and 3 months ago. History: Patient is postmenopausal. Family history of breast cancer in paternal aunt at age 60. Took hormonal contraceptives for 7 years beginning at age 17. Took estrogen for 6 months beginning at age 39. Physical Findings: A clinical breast exam by your physician is recommended on an annual basis and results should be correlated with mammographic findings. MG Screening Mammo w CAD Bilateral CC and MLO view(s) were taken. Prior study comparison: June 11, 2018, bilateral MG screening mammo w CAD. May 29, 2017, right breast MG 3d work up w/cad RT. There are scattered fibroglandular densities. No significant changes when compared with prior studies. ASSESSMENT: Benign, BI-RAD 2 RECOMMENDATION: Routine screening mammogram of both breasts in 1 year.
== END | disposition home or self-care (01) ==
LOC: RADMAMWWP 07:44
PROVIDERS: ATTEND Obstetrics & Gynecology
DX: Z12.31 Encounter for screening mammogram for malignant neoplasm of breast (principal); Z80.3 Family history of malignant neoplasm of breast
CPT/HCPCS: 77067

== ENCOUNTER → 2019-09-26 | Outpatient (CLI) | payer BC, OTHER ==
--- NOTE | 2019-09-26 11:51 | US ---
EXAMINATION TYPE: US thyroid st tissue head/neck DATE OF EXAM: 09/26/2019 COMPARISON: NONE CLINICAL HISTORY: E04.2 Non toxic multinodular goiter,. follow up exam GLAND SIZE: Right Lobe: 5.8 x 2.6 x 2.1 cm Overall Parenchyma: heterogenous Left Lobe: 6.5 x 2.2 x 2.0 cm Overall Parenchyma: heterogeneous Isthmus Thickness: 0.3 cm NODULES RIGHT: # of nodules measured on right: 1 1. 0.9 X 0.9 x 0.6 cm mixed nodule at the upper pole with well-defined margins. This nodule is wid er than tall and shows intranodular vascularity. Prior size: 0.9 x 0.7 x 0.5 cm LEFT: # of nodules measured on left: 3 1. 1.6 X 1.1 x 1.2 cm mixed nodule at the upper pole with well-defined margins. This nodule is wid er than tall and shows intranodular vascularity. Likely stable accounting for differences in measurem ent technique Prior size: 1.2 x 1.0 x 1.1 cm 2. 1.2 X 1.2 x 0.8 cm mixed nodule at the mid pole with well-defined margins. This nodule is wider than tall and shows intranodular vascularity. Prior size: 1.1 x 1.1 x 0.6 cm 3. 1.3 X 1.1 x 0.8 cm mixed nodule at the lower pole with well-defined margins. This nodule is wide r than tall and shows intranodular vascularity. Prior size: 1.1 x 0.9 x 0.7 cm ISTHMUS: # of nodules measured in the isthmus: 0 Bilateral neck scanned, no evidence of lymphadenopathy. IMPRESSION: Multinodular goiter is similar to prior exam
== END ==
LOC: RADUSWWP 08:24
PROVIDERS: ATTEND Internal Medicine Endocrinology, Diabetes & Metabolism
DX: E04.2 Nontoxic multinodular goiter (principal); E05.90 Thyrotoxicosis, unspecified without thyrotoxic crisis or storm
CPT/HCPCS: 76536

== ENCOUNTER → 2019-11-16 | Outpatient (CLI) | payer BC, OTHER ==
[2019-11-16 17:31] LABS: T4, Free (Free Thyroxine) 1.2 ng/dL (0.80-1.80)
== END | disposition home or self-care (01) ==
LOC: LABWHC1 08:40
PROVIDERS: ATTEND Internal Medicine Endocrinology, Diabetes & Metabolism
DX: E05.90 Thyrotoxicosis, unspecified without thyrotoxic crisis or storm (principal)
CPT/HCPCS: 36415; 84439; 84443; 84480

== ENCOUNTER → 2019-12-19 | Outpatient (CLI) | payer BC, OTHER ==
[2019-12-19 20:47] LABS: T4, Free (Free Thyroxine) 1.2 ng/dL (0.80-1.80)
== END | disposition home or self-care (01) ==
LOC: LABWHC1 13:03
PROVIDERS: ATTEND Internal Medicine Endocrinology, Diabetes & Metabolism
DX: E05.90 Thyrotoxicosis, unspecified without thyrotoxic crisis or storm (principal)
CPT/HCPCS: 36415; 84439; 84443; 84480

== ENCOUNTER → 2020-04-05 | Outpatient (CLI) | payer BC, OTHER ==
[2020-04-05 15:00] LABS: T4, Free (Free Thyroxine) 1.3 ng/dL (0.80-1.80)
== END | disposition home or self-care (01) ==
LOC: LABWHC1 10:23
PROVIDERS: ATTEND Internal Medicine Endocrinology, Diabetes & Metabolism
DX: E05.90 Thyrotoxicosis, unspecified without thyrotoxic crisis or storm (principal)
CPT/HCPCS: 36415; 84439; 84443; 84480

== ENCOUNTER → 2020-06-08 | Outpatient (CLI) | payer BC, OTHER ==
[2020-06-08 21:23] LABS: T4, Free (Free Thyroxine) 1.2 ng/dL (0.80-1.80)
== END | disposition home or self-care (01) ==
LOC: LABWHC1 12:06
PROVIDERS: ATTEND Internal Medicine Endocrinology, Diabetes & Metabolism
DX: E05.90 Thyrotoxicosis, unspecified without thyrotoxic crisis or storm (principal)
CPT/HCPCS: 36415; 84439; 84443; 84480

== ENCOUNTER → 2020-09-21 | Outpatient (CLI) | payer BC, OTHER ==
[2020-09-21 22:52] LABS: T4, Free (Free Thyroxine) 1.3 ng/dL (0.80-1.80)
== END | disposition home or self-care (01) ==
LOC: LABWHC1 10:10
PROVIDERS: ATTEND Internal Medicine Endocrinology, Diabetes & Metabolism
DX: E05.90 Thyrotoxicosis, unspecified without thyrotoxic crisis or storm (principal)
CPT/HCPCS: 36415; 84439; 84443; 84480

== ENCOUNTER → 2020-09-24 | Outpatient (CLI) | payer BC, OTHER ==
--- NOTE | 2020-09-25 08:34 | MM ---
Reason for exam: screening (asymptomatic). Last mammogram was performed 1 year ago. History: Patient is postmenopausal. Family history of breast cancer in paternal aunt at age 60. Took hormonal contraceptives for 7 years beginning at age 17. Took estrogen for 6 months beginning at age 39. Physical Findings: A clinical breast exam by your physician is recommended on an annual basis and results should be correlated with mammographic findings. MG Screening Mammo w CAD Bilateral CC and MLO view(s) were taken. Prior study comparison: September 21, 2019, bilateral MG screening mammo w CAD. June 11, 2018, bilateral MG screening mammo w CAD. There are scattered fibroglandular densities. ASSESSMENT: Negative, BI-RAD 1 RECOMMENDATION: Routine screening mammogram of both breasts in 1 year.
== END | disposition home or self-care (01) ==
LOC: RADMAMWWP 12:15
PROVIDERS: ATTEND Obstetrics & Gynecology
DX: Z12.31 Encounter for screening mammogram for malignant neoplasm of breast (principal); Z78.0 Asymptomatic menopausal state; Z80.3 Family history of malignant neoplasm of breast
CPT/HCPCS: 77067

== ENCOUNTER → 2020-11-30 | Outpatient (CLI) | payer BC, OTHER ==
[2020-11-30 14:57] LABS: HCT 43.5 % (34.0-46.0); HGB 14.4 gm/dL (11.4-16.0); MCH 31.6 pg (25.0-35.0); MCHC 33.2 g/dL (31.0-37.0); MCV 95.1 fL (80.0-100.0); Mean Platelet Volume 7.5; Platelet Count 323 k/uL (150-450); RBC 4.58 m/uL (3.80-5.40); RDW 12.1 % (11.5-15.5); WBC 8.4 k/uL (3.8-10.6)
[2020-11-30 15:04] LABS: African American GFR (CKD) >90 (>60 ml/min/1.73 sqM); Anion Gap 9 mmol/L; Blood Urea Nitrogen 15 mg/dL (7-17); Carbon Dioxide 29 mmol/L (22-30); Chloride 103 mmol/L (98-107); Non-African American GFR(CKD) >90 (>60 ml/min/1.73 sqM); Potassium 4.1 mmol/L (3.5-5.1); Sodium 141 mmol/L (137-145)
== END | disposition home or self-care (01) ==
LOC: LABPAT 14:15
PROVIDERS: ATTEND Internal Medicine Cardiovascular Disease
DX: Z01.812 Encounter for preprocedural laboratory examination (principal); R94.39 Abnormal result of other cardiovascular function study
CPT/HCPCS: 36415; 80051; 82565; 84520; 85027

== ENCOUNTER 2020-12-07 06:17 | Day surgery (SDC) | payer BC, OTHER ==
[2020-12-04 16:22] VITALS: BMI 33.5
[~2020-12-07 06:17] MED LIST changes: +ALPRAZolam 0.25 MG TAB PO PRN; +ALPRAZolam 0.5 MG TAB PO PRN; -LACTATED RINGERS 1,000 ML IV SCH; -LIDOCAINE 1% 20 ML VIAL (10MG/ML) FOR IV START INTRADERMA PRN; +NITROGLYCERIN SL TABS 0.4 MG TAB SUBLINGUAL PRN; +SODIUM CHLORIDE 0.9% 1,000 ML in EMPTY BAG 1 BAG IV SCH
[2020-12-07] MEDS ORDERED: SODIUM CHLORIDE 0.9% 1,000 ML IV ONE (06:40)
[2020-12-07 06:53] VITALS: RESP 18
[2020-12-07] MEDS ORDERED: ASPIRIN 325 MG TAB PO ONE (07:00)
[2020-12-07] MEDS ORDERED: ATORVASTATIN 80 MG TAB PO ONE (07:00)
[2020-12-07] MEDS ORDERED: HEPARIN SODIUM 1,000 UN/ML (10ML VL) ONE (07:07)
[2020-12-07] MEDS ORDERED: fentaNYL (PF) 50 MCG/ML 2 ML AMP ONE (07:07)
[2020-12-07] MEDS ORDERED: MIDAZOLAM 2 MG/2 ML VIAL IV ONE (07:30)
[2020-12-07] MEDS ORDERED: fentaNYL (PF) 50 MCG/ML 2 ML AMP IV ONE (07:31)
[2020-12-07] MEDS ORDERED: LIDOCAINE 1% INJ 10MG/ML (20 ML MDV) SQ ONE ×2 (07:33→07:37)
[2020-12-07] MEDS ORDERED: VERAPAMIL SYRINGE (5 MG/10 ML) INTRAARTER ONE (07:34)
[2020-12-07] MEDS ORDERED: HEPARIN SODIUM 1,000 UN/ML (10ML VL) IV ONE (07:41)
[2020-12-07] MEDS ORDERED: IOPAMIDOL-370 125ML BTL INJ ONE (07:55)
[2020-12-07] MEDS ORDERED: RX INFO: IV CONTRAST WAS GIVEN 1 EACH MISC MISCELLANE PRN (08:13)
[2020-12-07] MEDS ORDERED: SODIUM CHLORIDE 0.9% 1,000 ML IV SCH (08:15)
--- NOTE | 2020-12-07 08:19 | P.CARDCATH ---
Date of Procedure: 12/07/20 Preoperative Diagnosis: Abnormal stress test, nonsustained V. tach Postoperative Diagnosis: Normal coronary arteries, normal LV function Procedure(s) Performed: Left heart cath with left ventriculography Description of Procedure: HISTORY: This is a 50-year-old female with history of mitral valve prolapse was having palpitations and evidence of nonsustained V. tach on the event monitor. Subsequently patient had a nuclear stress test which was suggestive of possible ischemia involving the anteroapical wall. Patient is advised to have a cardiac cath for definitive diagnosis CONSENT:I have discussed the risks, benefits and alternative therapies for the above-mentioned procedure and for both sedation/analgesia as well as necessary blood product administration, if indicated, as they pertain to this patient. The patient has indicated understanding and acceptance of the risks and procedures discussed. PROCEDURE: Patient was brought to the lab in a fasting state. Patient was given some IV sedation. The right wrist is infiltrated with lidocaine and right radial artery was entered using Seldinger technique. A 6-Azeri catheter was left in place and selective coronary arteriography and left ventriculography was performed. Patient tolerated the procedure well. TR band was applied for hemostasis. No immediate complications were noted and patient was transferred to [facility] in a stable condition Conscious Sedation: Versed 1mg Fentanyl 50 g Duration 27minutes HEMODYNAMICS: The aortic pressure is about 120/70. Left ventricle end-diastolic pressure is 8-10. There was no gradient across the aortic valve SELECTIVE CORONARY ARTERIOGRAPHY: LEFT MAIN: Normal length and free of occlusive disease THE LEFT ANTERIOR DESCENDING CORONARY ARTERY: . Good caliber vessel giving rise to good-sized diagonal and septal branches. Free of occlusive disease THE LEFT CIRCUMFLEX AND IS CORONARY ARTERY: Good Caliber vessel and codominant. Free of occlusive disease THE RIGHT CORONARY ARTERY: . Good Caliber vessel and codominant. Free of occlusive disease LEFT VENTRICULOGRAPHY: Revealed normal-sized cardiac silhouette with preserved LV function FINAL IMPRESSION: , Normal coronary arteries. Normal LV function PLAN: . Continue medical therapy. May consider flecainide for treatment of nonsustained V. tach. Will discuss with jig boring machine operator for metal PROGNOSIS: good
[2020-12-07 10:12] VITALS: TEMP 97.5
[2020-12-07 12:28] VITALS: BP 115/68; PULSE 100
== END 2020-12-07 13:41 | disposition home or self-care (01) ==
LOC: CATHCVL 06:17
PROVIDERS: ATTEND Internal Medicine Cardiovascular Disease
DX: R94.39 Abnormal result of other cardiovascular function study (principal)
CPT/HCPCS: 93458; 81025; 87635; C1894; C1769; J2250; J2001; J3010; J1644; Q9967

== ENCOUNTER → 2021-01-18 | Outpatient (CLI) | payer BC, OTHER ==
--- NOTE | 2021-01-18 08:21 | US ---
EXAMINATION TYPE: US thyroid st tissue head/neck DATE OF EXAM: 01/18/2021 COMPARISON: NONE CLINICAL HISTORY: E04.2 Nontoxic multinodular goiter. f/u exam GLAND SIZE: Right Lobe: 6.3 x 2.0 x 2.4 cm Overall Parenchyma: heterogenous Left Lobe: 6.6 x 2.5 x 2.1 cm Overall Parenchyma: heterogeneous Isthmus Thickness: 0.4 cm NODULES RIGHT: # of nodules measured on right: 1 1. 0.8 X 0.7 x 0.5 cm, upper, mixed cystic and solid, anechoic nodule, which is wider than tall, wi th smooth margins, without echogenic foci. Prior size: 0.9 x 0.9 x 0.5 cm LEFT: # of nodules measured on left: 3 1. 1.4 X 1.2 x 1.0 cm, lower , solid or almost completely solid, hypoechoic nodule, which is wider than tall, with smooth margins, without echogenic foci. Prior size: 1.3 x 1.1 x 0.7 cm 2. 1.9 X 1.7 x 1.0 cm, mid, mixed cystic and solid, hypoechoic nodule, which is wider than tall, w ith smooth margins, without echogenic foci. Prior size: 1.2 x 1.2 x 0.8 cm 3. 1.7 X 1.6 x 1.2 cm, upper, solid or almost completely solid, hypoechoic nodule, which is wider t ortiz tall, with smooth margins, without echogenic foci. Prior size: 1.6 x 1.1 x 1.2 cm ISTHMUS: # of nodules measured in the isthmus: 0 Bilateral neck scanned, no evidence of lymphadenopathy. IMPRESSION: The mixed solid cystic nodule in the left thyroid now measures up to 1.9 x 1.7 x 1.0 cm, previously m easured up to 1.2 x 1.2 x 0.8 cm. Please consider fine-needle aspiration considering increase in size if clinically warranted. 2017 ACR TI-RADS LEVEL: TR-RADS 3 - Mildly Suspicious: Follow if > 1.5 cm, FNA if > 2.5 cm *Highest TI-RADS level nodule reported
[2021-01-18 09:46] LABS: T4, Free (Free Thyroxine) 1.06 ng/dL (0.78-2.19)
== END | disposition home or self-care (01) ==
LOC: RADUSWWP 07:02
PROVIDERS: ATTEND Internal Medicine Endocrinology, Diabetes & Metabolism
DX: E04.2 Nontoxic multinodular goiter (principal)
CPT/HCPCS: 36415; 76536; 84439; 84443; 84480

== ENCOUNTER → 2021-09-25 | Outpatient (CLI) | payer BC, OTHER ==
--- NOTE | 2021-09-25 15:17 | MM ---
Reason for Exam: Screening (asymptomatic). Last screening mammogram was performed 12 month(s) ago. Patient History: Menarche at age 10. First Full-Term at age 26. Postmenopausal. Estrogen for 6 months from age 39 until age 39. Hormonal Contraceptives for 7 years from age 17 until age 24. Paternal aunt had breast cancer, age 60. Risk Values: Nirmala 5 year model risk: 1.3%. NCI Lifetime model risk: 10.5%. Prior Study Comparison: 06/11/2018 Bilateral Screening Mammogram, [facility]. 09/21/2019 Bilateral Screening Mammogram, [facility]. 09/24/2020 Bilateral Screening Mammogram, [facility]. Tissue Density: There are scattered fibroglandular densities. Findings: Analyzed By CAD. There is no suspicious group of microcalcifications or new suspicious mass in either breast. Overall Assessment: Benign, BI-RAD 2 Management: Screening Mammogram of both breasts in 1 year. A clinical breast exam by your physician is recommended on an annual basis and results should be correlated with mammographic findings. Electronically signed and approved by: Alexis Wynn M.D. Radiologis
== END | disposition home or self-care (01) ==
LOC: RADMAMWWP 06:53
PROVIDERS: ATTEND Obstetrics & Gynecology
DX: Z12.31 Encounter for screening mammogram for malignant neoplasm of breast (principal); Z80.3 Family history of malignant neoplasm of breast; Z78.0 Asymptomatic menopausal state
CPT/HCPCS: 77067

== ENCOUNTER → 2023-09-28 | Outpatient (CLI) | payer BC ==
--- NOTE | 2023-09-29 09:07 | MM ---
Reason for Exam: Screening (asymptomatic). Last screening mammogram was performed 12 month(s) ago. Patient History: Menarche at age 10. First Full-Term at age 26. Postmenopausal. Estrogen for 6 months from age 39 until age 39. Hormonal Contraceptives for 7 years from age 17 until age 24. Paternal aunt had breast cancer, age 60. Risk Values: Nirmala 5 year model risk: 1.4%. NCI Lifetime model risk: 10.1%. Prior Study Comparison: 09/24/2020 Bilateral Screening Mammogram, [facility]. 09/25/2021 Bilateral MG screening mammo w CAD, [facility]. 09/26/2022 Bilateral MG screening mammo w CAD, [facility]. Tissue Density: There are scattered areas of fibroglandular density. Findings: Analyzed By CAD. There is no suspicious group of microcalcifications or new suspicious mass in either breast. Benign-appearing calcifications. Chronic well-circumscribed nodularity left breast unchanged from 1999 and 8T. Overall Assessment: Benign, BI-RAD 2 Management: Screening Mammogram of both breasts in 1 year. . Patient should continue monthly self-breast exams. A clinical breast exam by your physician is recommended on an annual basis. This exam should not preclude additional follow-up of suspicious palpable abnormalities. Note on Nirmala scores and lifetime risk: 1. A Nirmala score greater than 3% is considered moderate risk. If this is the case, consider specialist referral to assess eligibility for a risk reducing agent. 2. If overall lifetime risk for the development of breast cancer is 20% or higher, the patient may qualify for future screening with alternating mammogram and breast MRI. Electronically signed and approved by: Alec Hamilton M.D. Radiologis
== END | disposition home or self-care (01) ==
LOC: RADMAMWWP 08:25
PROVIDERS: ATTEND Obstetrics & Gynecology
DX: Z12.31 Encounter for screening mammogram for malignant neoplasm of breast (principal); R92.323 Mammographic fibroglandular density, bilateral breasts; Z78.0 Asymptomatic menopausal state; Z80.3 Family history of malignant neoplasm of breast
CPT/HCPCS: 77067

== ENCOUNTER 2024-01-21 08:47 | Day surgery (SDC) | payer BC ==
--- NOTE | 2024-01-21 07:45 | P.GSHP ---
History of Present Illness H&P Date: 01/21/24 CHIEF COMPLAINT: Colon screen HISTORY OF PRESENT ILLNESS: The patient is a 53-year-old female who presents for colon screen. Lower endoscopy was offered for further evaluation and management. PAST MEDICAL HISTORY: Please see list. PAST SURGICAL HISTORY: Please see list. MEDICATIONS: Please see list. ALLERGIES: Please see list. SOCIAL HISTORY: No illicit drug use FAMILY HISTORY: No reports of Crohn disease or ulcerative colitis. REVIEW OF ORGAN SYSTEMS: CONSTITUTIONAL: No reports of fevers or chills. PHYSICAL EXAM: VITAL SIGNS: Stable GENERAL: Well-developed pleasant in no acute distress. HEENT: No scleral icterus. Extraocular movements grossly intact. Moist buccal mucosa. NECK: Supple without lymphadenopathy. CHEST: Unlabored respirations. Equal bilateral excursions. CARDIOVASCULAR: Regular rate and rhythm. Distal 2+ pulses. ABDOMEN: Soft, nontender, nondistended. MUSCULOSKELETAL: No clubbing, cyanosis, or edema. ASSESSMENT: 1. Colon screen. PLAN: 1. Recommend proceeding with a lower endoscopy Past Medical History Past Medical History: Asthma, Thyroid Disorder Additional Past Medical History / Comment(s): Migraines, thyroid nodule, Graves Disease, extra heart beat. History of Any Multi-Drug Resistant Organisms: None Reported Past Surgical History: Orthopedic Surgery, Uterine Ablation Additional Past Surgical History / Comment(s): Oral surgery, left knee arthroscopy, LAPAROTOMY, RIGHT OVARY REMOVED, CYST REMOVED FROM LEFT OVARY, colonoscopy. Past Anesthesia/Blood Transfusion Reactions: No Reported Reaction, Motion Sickness Additional Past Anesthesia/Blood Transfusion Reaction / Comment(s): "high anxiety before a procedure" Smoking Status: Former smoker - Past Family History Father Family Medical History: Cancer Medications and Allergies Home Medications Medication Instructions Recorded Confirmed Type SUMAtriptan succinate [Imitrex] 100 mg PO DIRECTED PRN 05/28/16 01/19/24 History Ibuprofen [Motrin] 800 mg PO Q8H PRN 09/02/17 01/19/24 History Albuterol Sulfate [Proventil Hfa] 1 puff INHALATION Q6HR PRN 10/01/18 01/19/24 History Acetaminophen [Tylenol Arthritis] 650 mg PO BID 12/04/20 01/19/24 History Ascorbic Acid [Vitamin C] 1,000 mg PO DAILY 12/04/20 01/19/24 History Cholecalciferol [Vitamin D3 (25 50 mcg PO DAILY 12/04/20 01/19/24 History Mcg = 1000 Iu)] Magnesium 400 mg PO HS 12/04/20 01/19/24 History Metoprolol Succinate (ER) [Toprol 50 mg PO QAM 12/04/20 01/19/24 History Xl] methIMAzole [Tapazole] 5 mg PO HS 12/04/20 01/19/24 History L.acidoph,Paracasei, B.lactis 1 each PO DAILY 12/14/23 01/19/24 History [Probiotic] Turmeric Root Extract [Turmeric] 500 mg PO DAILY 12/14/23 01/19/24 History Allergies Allergy/AdvReac Type Severity Reaction Status Date / Time morphine Allergy Itching/hot Verified 01/19/24 09:01 tetracycline [Tetracycline] Allergy Rash/Hives Verified 01/19/24 09:01
[~2024-01-21 08:47] MED LIST changes: -ALPRAZolam 0.25 MG TAB PO PRN; -ALPRAZolam 0.5 MG TAB PO PRN; +LIDOCAINE 1% (10MG/ML) FOR IV START INTRADERMA PRN; -NITROGLYCERIN SL TABS 0.4 MG TAB SUBLINGUAL PRN; -SODIUM CHLORIDE 0.9% 1,000 ML in EMPTY BAG 1 BAG IV SCH
[2024-01-21] MEDS: IV FLUID CONTINUATION 1,000 ML IV ONE (09:17)
[2024-01-21 09:20] VITALS: TEMP 97.1
[2024-01-21] MEDS: LACTATED RINGERS 1,000 ML IV SCH (09:28)
[2024-01-21] MEDS ORDERED: PROPOFOL 10 MG/ML 20 ML VIAL IV ONE (09:59)
--- NOTE | 2024-01-21 10:32 | P.PCN ---
Date of Procedure: 01/21/24 Description of Procedure: PREOPERATIVE DIAGNOSIS: Family history malignant colon polyps Colonoscopy screening POSTOPERATIVE DIAGNOSIS: Tubular adenoma rectum Sigmoid diverticulosis Internal hemorrhoids, grade 2 OPERATION: Colonoscopy to the ileocecal valve and appendiceal orifice, cecum Colonoscopy with cold forceps biopsy SURGEON: Keara Altman MD. ANESTHESIA: MAC. INDICATIONS: The patient is an 53-year-old female who presents family history of malignant colon polyps. Last colonoscopy 5 years. Benefits and risks were described and informed consent was obtained. DESCRIPTION OF PROCEDURE: The patient had undergone Suprep. The patient had been brought into the operating room and laid in the left lateral decubitus position. After adequate intravenous sedation, the rectum was examined with 2% lidocaine jelly. External hemorrhoids were encountered. The rectal tone was within normal limits. No lesions were palpated in the rectal vault. An Olympus colonoscope was advanced until the cecum, ileocecal valve and appendiceal orifice were clearly viewed. The prep was fair. Sigmoid diverticulosis was encountered. Colonic polyps were found and removed. No evidence of focal colitis was found. Retroflexion of the scope demonstrated grade 2 internal hemorrhoids without active bleeding or inflammation. The colon was desufflated. The patient had tolerated the procedure well. Withdrawal time was over 6 minutes. FINDINGS: Aronchick preparation quality scale 2+ (1-5) Internal hemorrhoids, grade 2 External hemorrhoids, grade 2. No arteriovenous malformations. Sigmoid diverticulosis Removal of 1 polyp: - Cold forceps biopsy at 20 cm from the anal verge, 4 mm rectum adenoma No focal colitis. RECOMMENDATIONS: Repeat colonoscopy 3 years, 2026 Plan - Discharge Summary Discharge Rx Participant: No New Discharge Prescriptions: Continue SUMAtriptan succinate [Imitrex] 100 mg PO DIRECTED PRN PRN Reason: Migraine Headache Ibuprofen [Motrin] 800 mg PO Q8H PRN PRN Reason: Pain Albuterol Sulfate [Proventil Hfa] 1 puff INHALATION Q6HR PRN PRN Reason: Shortness Of Breath Metoprolol Succinate (ER) [Toprol XL] 50 mg PO QAM methIMAzole [Tapazole] 5 mg PO HS Ascorbic Acid [Vitamin C] 1,000 mg PO DAILY Acetaminophen [Tylenol Arthritis] 650 mg PO BID L.acidoph,Paracasei, B.lactis [Probiotic] 1 each PO DAILY Magnesium 400 mg PO HS Cholecalciferol [Vitamin D3 (25 Mcg = 1000 Iu)] 50 mcg PO DAILY Turmeric Root Extract [Turmeric] 500 mg PO DAILY Discharge Medication List SUMAtriptan succinate [Imitrex] 100 mg PO DIRECTED PRN 05/28/16 [History] Ibuprofen [Motrin] 800 mg PO Q8H PRN 09/02/17 [History] Albuterol Sulfate [Proventil Hfa] 1 puff INHALATION Q6HR PRN 10/01/18 [History] Acetaminophen [Tylenol Arthritis] 650 mg PO BID 12/04/20 [History] Ascorbic Acid [Vitamin C] 1,000 mg PO DAILY 12/04/20 [History] Cholecalciferol [Vitamin D3 (25 Mcg = 1000 Iu)] 50 mcg PO DAILY 12/04/20 [History] Magnesium 400 mg PO HS 12/04/20 [History] Metoprolol Succinate (ER) [Toprol XL] 50 mg PO QAM 12/04/20 [History] methIMAzole [Tapazole] 5 mg PO HS 12/04/20 [History] L.acidoph,Paracasei, B.lactis [Probiotic] 1 each PO DAILY 12/14/23 [History] Turmeric Root Extract [Turmeric] 500 mg PO DAILY 12/14/23 [History] Follow up Appointment(s)/Referral(s): Keara Altman MD [STAFF PHYSICIAN] - As Needed Patient Instructions/Handouts: Colorectal Polyps (GEN), Diverticulosis Diet (GEN) Activity/Diet/Wound Care/Special Instructions: Repeat colonoscopy 3 years, 2026 Discharge Disposition: HOME SELF-CARE
[2024-01-21 11:05] VITALS: BP 141/92; PULSE 77; RESP 20
== END 2024-01-21 11:38 | disposition home or self-care (01) ==
LOC: ORWHC2ENDO 08:47
PROVIDERS: ATTEND Surgery Plastic and Reconstructive Surgery
DX: Z12.11 Encounter for screening for malignant neoplasm of colon (principal); K57.30 Diverticulosis of large intestine without perforation or abscess without bleeding; K64.1 Second degree hemorrhoids; K62.1 Rectal polyp; J45.909 Unspecified asthma, uncomplicated; E05.10 Thyrotoxicosis with toxic single thyroid nodule without thyrotoxic crisis or storm; G43.909 Migraine, unspecified, not intractable, without status migrainosus; F41.9 Anxiety disorder, unspecified; F12.90 Cannabis use, unspecified, uncomplicated; Z79.899 Other long term (current) drug therapy; Z98.890 Other specified postprocedural states; Z87.891 Personal history of nicotine dependence; Z88.5 Allergy status to narcotic agent; Z88.1 Allergy status to other antibiotic agents; Z80.0 Family history of malignant neoplasm of digestive organs
CPT/HCPCS: 88305; 45380; J2704